=== PATIENT | male | born 1960 | race Hispanic/Latino ===

== ENCOUNTER 2023-05-16 21:52 | Observation (INO) | payer OTHER ==
[2023-05-16 23:10] LABS: Absolute Lymphocytes (CBC) 0.3 K/uL (0.7-4.9); Lymphocytes % 7.3 % (15.3-44.8); MCV 95.3 fL (80-100); MPV 9.7 fL (7.6-11.3); RBC Red Blood Cell Count 3.57 M/uL (4.33-5.43)
[2023-05-16 23:11] LABS: Protime INR 1.23
[2023-05-16 23:13] LABS: Albumin 3.6 g/dL (3.4-5.0); Bilirubin Direct 0.5 mg/dL (0-0.2); Bilirubin Indirect, Calculated 0.5 mg/dL (0.2-0.8); Magnesium 2.6 mg/dL (1.6-2.4); Potassium 4.4 mEq/L (3.5-5.1); Protein, Total 7.6 g/dL (6.4-8.2)
[2023-05-16 23:16] LABS: Troponin High Sensitivity 62.3 pg/mL (<58.9)
[2023-05-17] MEDS ORDERED: ONDANSETRON 4 MG/2 ML VIAL IV PRN (00:41)
[2023-05-17] MEDS ORDERED: ACETAMINOPHEN 500 MG TAB PO PRN (00:41)
[2023-05-17 00:47] LABS: Arterial Blood Carboxyhemoglob 3.5 % (0-1.5); Blood Gas Oxyhemoglobin 83.1 % (94-97); Blood O2 Saturation 87.4 % (92-98.5)
--- NOTE | 2023-05-17 00:48 | P.HP ---
Certification for Inpatient Patient admitted to: Observation With expected LOS: <2 Midnights Patient will require the following post-hospital care: None Practitioner: I am a practitioner with admitting privileges, knowledge of patient current condition, hospital course, and medical plan of care. Services: Services provided to patient in accordance with Admission requirements found in Title 42 Section 412.3 of the Code of Federal Regulations Patient History Date of Service: 05/17/23 Reason for admission: Fall History of Present Illness: 62 year old male with past medical history of ESRD on HD, IVÁN, HTN, HLD, presents to ER after a fall. HPI limited due to patient sleeping. left for the evening. Per / ER note, patient did not get to finish HD today. Patient is resenting with eyes closed, responds to verbal, but is not awake enough to answer questions. Per ER, patient has FVO, generalized edema, needs to complete HD. ROS limited due to patient sleeping. Plan to admit for Obs for HD in am. Per ER note, patient had a fall, CT of head was negative for acute findings. - Past Medical/Surgical History -: ESRD HD -: HTN -: IVÁN -: Restless leg syndrome -: limited due to patient sleeping, Psychosocial/ Personal History: , lives with spouse - Social History Smoking Status: Never smoker Alcohol use: No CD- Drugs: No Review of Systems is unable to be obtained Physical Examination - Physical Exam General: Other (resting with eye closed, responds to verbal, asleep) HEENT: Atraumatic, Normocephalic, Mucous membr. moist/pink Neck: Supple, 2+ carotid pulse no bruit, JVD not distended Respiratory: Crackles/rales Cardiovascular: Normal S1 S2, Edema Capillary refill: <2 Seconds Gastrointestinal: Normal bowel sounds, Soft and benign Musculoskeletal: Other (eccymosis to left eye with mild edema) Integumentary: Other (+2-3 edema BLE) Neurological: Other (asleep, eyes open to verbal, ) - Studies Laboratory Data (last 24 hrs) 05/16/23 22:40: PT 13.5 H, INR 1.23 05/16/23 22:40: WBC 4.50, Hgb 10.9 L, Hct 34.0 L, Plt Count 109 L 05/16/23 22:40: Sodium 133 L, Potassium 4.4, BUN 48 H, Creatinine 8.35 H, Glucose 84, Magnesium 2.6 H, Total Bilirubin 1.0, AST 16, ALT 16, Alkaline Phosphatase 151 H Assessment and Plan - Plan Assessment plan ESRD HD FVO fall HTN Restless leg IVÁN DVT Assessment plan ESRD HD FVO neph consult HD in am trend elec Replace prn, daily wt, IO fall fall precautions PT eval in am HTN Restless leg IVÁN Bipap at hs resume approp home meds DVT heparin Renal diet Full code Discharge Plan: Home Plan to discharge in: 24 Hours - Advance Directives Does patient have a Living Will: No Does patient have a Durable POA for Healthcare: No - Code Status/Comfort Care Code Status: Full Code Physician Review: Patient Assessed, Agree with Above Assessment and Plan Critical Care: Yes Time Spent Managing Pts Care (In Minutes): 50
--- NOTE | 2023-05-17 01:28 | EDPHYS ---
Physician Documentation [facility] Name: Gustavo Livingston Age: 62 yrs Sex: Male : 1960 Arrival Date: 05/16/2023 Time: 21:52 Bed 8 Private MD: ED Physician Delbert Yanez HPI: 05/16 22:01 This 62 yrs old Male presents to ER via Unassigned with complaints of Dialysis sp4 pt, Fall Injury, Head Injury-Adult. 05/17 00:19 Very pleasant 60-year-old male presents with acute onset generalized weakness and sp4 confusion associated with incomplete dialysis this morning. Patient is from dialysis for fourth. He is here on vacation, he was dialyzed a [facility] hours [facility] this morning. Patient experienced significant restless legs and body spasms and could not be dialyzed any further. Patient was taken off dialysis he went attempted to go to the beach but developed worsening confusion generalized weakness and was brought here by his spouse. Patient is able to assist onto the bed has significant bilateral lower extremity tense swelling and also reports that he fell at home sustaining left-sided facial contusion also right hip pain after the fall. . Historical: - Allergies: 05/16 22:39 Morphine; pf1 - PMHx: 22:39 CKD; dialysis; cardiomegaly; autoimmune disorder; IGA; hyperkalemia; pf1 - PSHx: 22:39 peritoneal catheter removed; tumor removed from spine; dialysis catheter to right pf1 anterior chest wall; old dialysis fistula to left arm; - Immunization history:: Adult Immunizations up to date, Last tetanus immunization: < 5 years ago Pneumococcal vaccine is up to date, Flu vaccine is up to date. - Social history:: Smoking status: Patient reports the use of cigarette tobacco products, smokes one pack cigarettes per day. Patient/guardian denies using alcohol, street drugs. - Family history:: not pertinent. ROS: 05/17 00:19 Constitutional: Negative for fever, chills, and weight loss, positive generalized sp4 weakness and confusion, positive fall at home positive for left facial injury Eyes: Negative for injury, pain, redness, and discharge, positive left periorbital contusion and left periorbital injury ENT: Negative for injury, pain, and discharge, Neck: Negative for injury, pain, and swelling, Cardiovascular: Negative for chest pain, palpitations, and edema, Respiratory: Negative for cough, wheezing, and pleuritic chest pain, Abdomen/GI: Negative for abdominal pain, nausea, vomiting, diarrhea, and constipation, Back: Negative for injury and pain, : Negative for injury, bleeding, discharge, and swelling, MS/Extremity: Positive for right hip pain right pelvic pain after a fall. Positive for bilateral lower extremity edema Skin: Negative for injury, rash, and discoloration, Neuro: Negative for headache, weakness, numbness, tingling, and seizure, positive for confusion Psych: Negative for depression, anxiety, Allergy/Immunology: Negative for hives, rash, and allergies Endocrine: Negative for neck swelling, polydipsia, polyuria, polyphagia, and weight changes Hematologic/Lymphatic: Negative for swollen nodes, abnormal bleeding, and unusual bruising Exam: 00:16 ECG was reviewed by the Attending Physician. EKG time 2251, there is sinus rhythm sp4 with a rate of 67, no ST elevation or depression, right bundle branch block, positive multifocal PVCs , no sign of acute ID 01:27 Constitutional: This is a well developed, well nourished patient who is awake, alert, sp4 patient is ill-appearing, generalized and bilateral lower extremity edema with pitting, also right chest wall dialysis permacath, left upper arm dialysis fistula that is reported to be nonfunctional, patient is overweight, he has pale in appearance, ill-appearing but nontoxic. Stable blood pressure on arrival Head/Face: Normocephalic, atraumatic. Eyes: Pupils equal round and reactive to light, extra-ocular motions intact. Lids and lashes normal. Conjunctiva and sclera are not injected. Cornea within normal limits. Periorbital areas with no swelling, redness, or edema. ENT: Nares patent. No nasal discharge, no septal abnormalities noted. Tympanic membranes are normal and external auditory canals are clear. Oropharynx with no redness, swelling, or masses, exudates, or evidence of obstruction, uvula midline. Mucous membranes moist. Neck: Trachea midline, no thyromegaly or masses palpated, and no cervical lymphadenopathy. Supple, full range of motion without nuchal rigidity, or vertebral point tenderness. Chest/axilla: Normal chest wall appearance and motion. Nontender with no deformity. No lesions are appreciated. Cardiovascular: Regular rate and rhythm with a normal S1 and S2. No gallops, murmurs, or rubs. Normal PMI, no JVD. No pulse deficits. Respiratory: Lungs have equal breath sounds bilaterally, clear to auscultation and percussion. No rales, rhonchi or wheezes noted. Diminished bilateral lower breath sounds Abdomen/GI: Soft, non-tender, with normal bowel sounds. No distension or tympany. No guarding or rebound. No evidence of tenderness throughout. Back: No spinal tenderness. No costovertebral tenderness. Skin: Warm, dry with normal turgor. Normal color with no rashes, no lesions, and no evidence of cellulitis. Bilateral lower extremity venous stasis skin changes MS/ Extremity: Pulses equal, no cyanosis. Neurovascular intact. Full, normal range of motion. Neuro: Awake and alert, GCS 15, oriented to person, place, Cranial nerves II-XII grossly intact. Motor strength 5/5 in all extremities. Sensory grossly intact. Peers to be mildly confused, generalized weakness with no localized neurologic deficit. Psych: Awake, alert, with orientation to person, and place. behavior, mood, and affect are within normal limits Vital Signs: 05/16 22:23 BP 141 / 80; Pulse 62; Resp 23; Temp 98(O); Pulse Ox 95% on R/A; Weight 101 kg; Height pf1 5 ft. 9 in. ; Pain 8/10; 23:01 BP 141 / 80; Pulse 82; Resp 18; Pulse Ox 95% ; rv 05/17 00:00 BP 169 / 91; Pulse 62; Resp 16; Pulse Ox 99% on 2 lpm NC; rv 01:00 BP 166 / 97; Pulse 63; Resp 16; Pulse Ox 99% on 2 lpm NC; rv 02:00 BP 170 / 98; Pulse 63; Resp 16; Temp 98; Pulse Ox 99% on 2 lpm NC; rv 05/16 22:23 Body Mass Index 32.88 (101.00 kg, 175.26 cm) pf1 05/16 22:23 Pain Scale: Adult pf1 Dilley Coma Score: 02:31 Eye Response: spontaneous(4). Motor Response: obeys commands(6). Verbal Response: rv oriented(5). Total: 15. MDM: 05/16 22:03 Patient medically screened. sp4 05/17 01:27 Differential diagnosis: abrasion, closed head injury, contusion, fracture, laceration, sp4 multiple trauma, sprain, strain. Data reviewed: vital signs, nurses notes, lab test result(s), EKG, radiologic studies, CT scan, plain films. Consideration of Admission/Observation Patient was admitted/placed on observation. Escalation of care including admission/observation considered. Management of patient was discussed with the following: Hospitalist: Discussed with admitting team. Plumber'S Assistant: Discussed with glaze supervisor Dr. Sweeney . ED course: Patient this time warrants admission for hemodialysis in the morning. Trauma work-up was negative.. ED course: TECHNIQUE: Single frontal view of the pelvis and for views of the right femur were obtained. FINDINGS: There is no fracture or dislocation. The joint spaces are preserved. Mild reticulation throughout the subcutaneous tissues may be seen with edema, venous stasis and cellulitis.. Degenerative change of the lumbar spine. Mild degenerative change of the bilateral hips. Vascular calcification present throughout the soft tissues. IMPRESSION: 1. No acute fracture or dislocation. 2. Mild reticulation throughout the subcutaneous tissues may be seen with edema, venous stasis and cellulitis.. ED course: CLINICAL HISTORY: The patient is 62 years old and is Male; DYSPNEA TECHNIQUE: Frontal view of the chest. COMPARISON: No relevant prior studies available. FINDINGS: Lungs: Prominent interstitial markings which may indicate interstitial edema. Pleural space: Left hemidiaphragm is somewhat obscured which can be seen with left pleural effusion, as well as left lower lobe consolidation or atelectasis. No pneumothorax. Heart: Unremarkable. Mediastinum: Unremarkable. Bones/joints: Unremarkable. Tubes, lines and devices: Right central venous catheter with tip in the right atrium. IMPRESSION: 1. Prominent interstitial markings which may indicate interstitial edema. 2. Left hemidiaphragm is somewhat obscured which can be seen with left pleural effusion, as well as left lower lobe consolidation or atelectasis. . ED course: CT head - COMPARISON: No relevant prior studies available. FINDINGS: Brain: Mild cerebral atrophy. Mild nonspecific white matter changes likely related to chronic microvascular ischemic disease. No hemorrhage. Ventricles: Unremarkable. No ventriculomegaly. Bones/joints: Unremarkable. No acute fracture. Soft tissues: Unremarkable. Sinuses: Unremarkable as visualized. Mastoid air cells: Partial opacification of the right mastoid air cells. IMPRESSION: No acute intracranial abnormality. . 01:38 ED course: Patient's condition is stable will admit as labs for hemodialysis in the sp4 morning.. . 02:47 ED course: Error of ordering -Remeron was ordered but not given secondary to no sp4 necessity in this patient . 05/16 22:12 Order name: Basic Metabolic Panel; Complete Time: 23:53 sp4 05/16 22:12 Order name: CBC with Diff; Complete Time: 23:53 sp4 05/16 22:12 Order name: LFT's; Complete Time: 23:53 sp4 05/16 22:12 Order name: Magnesium; Complete Time: 23:53 sp4 05/16 22:12 Order name: NT PRO-BNP; Complete Time: 23:53 sp4 05/16 22:12 Order name: PT-INR; Complete Time: 23:53 sp4 05/16 22:12 Order name: Troponin HS; Complete Time: 23:53 sp4 05/16 22:22 Order name: AMMONIA; Complete Time: 23:53 sp4 05/17 00:34 Order name: ABG; Complete Time: 02:47 pf1 05/17 00:39 Order name: Glucose, Ancillary Testing; Complete Time: 02:47 EDMS 05/17 00:43 Order name: NT PRO-BNP EDMS 05/17 00:43 Order name: Urinalysis w/ reflexes EDMS 05/17 00:44 Order name: Urinalysis w/ reflexes EDMS 05/17 00:44 Order name: Basic Metabolic Panel EDMS 05/17 00:44 Order name: Basic Metabolic Panel EDMS 05/17 00:44 Order name: Basic Metabolic Panel EDMS 05/17 00:44 Order name: CBC with Automated Diff EDMS 05/17 00:44 Order name: CBC with Automated Diff EDMS 05/17 00:44 Order name: CBC with Automated Diff EDMS 05/17 00:44 Order name: Magnesium EDMS 05/17 00:44 Order name: Magnesium EDMS 05/17 00:44 Order name: Magnesium EDMS 05/17 00:44 Order name: Troponin High Sensitivity EDMS 05/17 00:44 Order name: Troponin High Sensitivity EDMS 05/17 00:44 Order name: Troponin High Sensitivity EDMS 05/17 00:44 Order name: Troponin High Sensitivity EDMS 05/17 00:44 Order name: Troponin High Sensitivity EDMS 05/16 22:12 Order name: XRAY Chest (1 view) [facility] 05/16 22:22 Order name: Pelvis XRAY [facility] 05/16 22:22 Order name: Femur Right XRAY [facility] 05/16 22:22 Order name: CT Head Brain wo Cont [facility] 05/16 22:12 Order name: EKG; Complete Time: 22:13 [facility] 05/17 00:32 Order name: CONS Physician Consult [facility] 05/17 00:43 Order name: Renal [facility] 05/16 22:12 Order name: Cardiac monitoring; Complete Time: 23:00 [facility] 05/16 22:12 Order name: EKG - Nurse/Tech; Complete Time: 23:00 [facility] 05/16 22:12 Order name: IV Saline Lock; Complete Time: 23:00 [facility] 05/16 22:12 Order name: Labs collected and sent; Complete Time: 23:00 [facility] 05/16 22:12 Order name: O2 Per Protocol; Complete Time: 23:00 [facility] 05/16 22:12 Order name: O2 Sat Monitoring; Complete Time: 23:01 [facility] EC:16 Rate is 67 beats/min. Rhythm is regular, Sinus Rhythm. QRS [place] is Normal. QRS interval sp4 is prolonged. T waves are Inverted in leads V1, V2, V3. No ST changes noted. Interpreted by me. Administered Medications: 05/16 23:09 Not Given (PT IS ASLEEPp): Remeron PO 15 mg PO once rv Disposition Summary: 05/17/23 01:27 Hospitalization Ordered Hospitalization Status: Inpatient Admission sp4 Provider: Jillian Kahn Location: Telemetry/MedSur (observation) sp4 Condition: Stable sp4 Problem: new sp4 Symptoms: are unchanged sp4 Bed/Room Type: Standard 4 Room Assignment: 411(05/17/23 02:13) eb1 Diagnosis - End-stage renal disease, volume overload, acute generalized weakness, fall at home, sp4 left facial contusion, right hip sprain, end-stage renal disease on dialysis, cardiomegaly, Forms: - Medication Reconciliation Form sp4 - SBAR form sp4 Signatures: Dispatcher [employer] EDGA Khalida Abbott RN RN eb1 Polly Deluca RN RN pf1 Delbert Yanez MD MD sp4 Nithin Chahal RN rv Corrections: (The following items were deleted from the chart) 05/17 01:32 00:19 Constitutional: Negative for fever, chills, and weight loss, positive generalized sp4 weakness and confusion, positive fall at home positive for left facial injury Eyes: Negative for injury, pain, redness, and discharge, positive left periorbital contusion and left periorbital injury ENT: Negative for injury, pain, and discharge, Neck: Negative for injury, pain, and swelling, Cardiovascular: Negative for chest pain, palpitations, and edema, Respiratory: Negative for cough, wheezing, and pleuritic chest pain, sp4 01:33 00:19 Constitutional: Negative for fever, chills, and weight loss, positive generalized sp4 weakness and confusion, positive fall at home positive for left facial injury Eyes: Negative for injury, pain, redness, and discharge, positive left periorbital contusion and left periorbital injury ENT: Negative for injury, pain, and discharge, Neck: Negative for injury, pain, and swelling, Cardiovascular: Negative for chest pain, palpitations, and edema, Respiratory: Negative for cough, wheezing, and pleuritic chest pain, Abdomen/GI: Negative for abdominal pain, nausea, vomiting, diarrhea, and constipation, Back: Negative for injury and pain, : Negative for injury, bleeding, discharge, and swelling, MS/Extremity: Positive for right hip pain right pelvic pain after a fall. Skin: Negative for injury, rash, and discoloration, Neuro: Negative for headache, weakness, numbness, tingling, and seizure, positive for confusion Psych: Negative for depression, anxiety, Allergy/Immunology: Negative for hives, rash, and allergies Endocrine: Negative for neck swelling, polydipsia, polyuria, polyphagia, and weight changes Hematologic/Lymphatic: Negative for swollen nodes, abnormal bleeding, and unusual bruising sp4 02:13 01:27 sp4 eb1
--- NOTE | 2023-05-17 01:28 | ER ---
Nurse's Notes [facility] Name: Gustavo Livingston Age: 62 yrs Sex: Male : 1960 Arrival Date: 05/16/2023 Time: 21:52 Bed 8 Private MD: Diagnosis: End-stage renal disease, volume overload, acute generalized weakness, fall at home, left facial contusion, right hip sprain, end-stage renal disease on dialysis, cardiomegaly, Presentation: 05/16 22:23 Chief complaint: Spouse and/or significant other states: patient fell today at 1000 pf1 while at dialysis, head injury with contusion to left eye. Patient C/O generalized pain with worse pain to right hip. stated patient only completed 1.5 hours dialysis due to severe muscle spasms,performed today at [facility] in [facility] at 1000 this AM. stated patient frequency falls with intermittent confusion and only sleeps approximately 2 hours a night. Coronavirus screen: Vaccine status: Patient reports receiving the 2nd dose of the covid vaccine. 3 doses of Pfizer Client denies travel out of the [place] in the last 14 days. At this time, the client does not indicate any symptoms associated with coronavirus-19. Ebola Screen: Patient negative for fever greater than or equal to 101.5 degrees Fahrenheit, and additional compatible Ebola Virus Disease symptoms. Initial Sepsis Screen: Does the patient meet any 2 criteria? HR > 90 bpm. Does the patient have a suspected source of infection? No. Patient's initial sepsis screen is negative. Risk Assessment: Do you want to hurt yourself or someone else? Patient reports no desire to harm self or others. 22:23 Method Of Arrival: Wheelchair pf1 22:23 Acuity: ROSCOE 3 pf1 23:03 Onset of symptoms is unknown. rv Triage Assessment: 23:02 General: Appears ill, Behavior is drowsy. Pain: Denies pain. 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 - Social history:: Smoking status: Patient reports the use of cigarette tobacco products, smokes one pack cigarettes per day. Patient/guardian denies using alcohol, street drugs. - Family history:: not pertinent. Screenin:02 [facility] ED Fall Risk Assessment (Adult) History of falling in the last 3 months, rv including since admission Yes- fall prone (multiple falls) (3 pts) Confusion or Disorientation Yes (5 pts) Intoxicated or Sedated No (0 pts) Impaired Gait Yes (1 pt) Mobility Assist Device Used Yes (1 pt) Altered Elimination Yes (1 pt) Score/Fall Risk Level 3 or more points = High Risk Oriented to surroundings, Maintained a safe environment, Educated pt \T\ family on fall prevention, incl call for assistance when getting out of bed, Assessed \T\ reinforced patient's understanding of fall precautions, Provided non-skid footwear, Hourly rounding (assess needs \T\ fall precautionary measures) done, Used ambulatory aids as needed (educated on \T\ assisted with), Used gait belt as appropriate Implemented a Fall Risk Plan of Care, Apply high fall risk patient identification: yellow non skid footwear/ fall signage, Placed fall mat w/ non beveled edge next to bed, Activated bed/chair alarm, Remained w/in arm's length of patient and in sight while toileting, Offered frequent toileting (1:1 observation), Remained with patient while ambulating, Utilized family, sitter, or virtual finance consultant as indicated. Abuse screen: Denies threats or abuse. Denies injuries from another. Nutritional screening: No deficits noted. Tuberculosis screening: No symptoms or risk factors identified. Assessment: 05/17 00:30 Neuro: Level of Consciousness is lethargic. rv Vital Signs: 05/16 22:23 BP 141 / 80; Pulse 62; Resp 23; Temp 98(O); Pulse Ox 95% on R/A; Weight 101 kg; Height pf1 5 ft. 9 in. ; Pain 8/10; 23:01 BP 141 / 80; Pulse 82; Resp 18; Pulse Ox 95% ; rv 05/17 00:00 BP 169 / 91; Pulse 62; Resp 16; Pulse Ox 99% on 2 lpm NC; rv 01:00 BP 166 / 97; Pulse 63; Resp 16; Pulse Ox 99% on 2 lpm NC; rv 02:00 BP 170 / 98; Pulse 63; Resp 16; Temp 98; Pulse Ox 99% on 2 lpm NC; rv 05/16 22:23 Body Mass Index 32.88 (101.00 kg, 175.26 cm) pf1 05/16 22:23 Pain Scale: Adult pf1 Giovanni Coma Score: 02:31 Eye Response: spontaneous(4). Motor Response: obeys commands(6). Verbal Response: rv oriented(5). Total: 15. ED Course: 05/16 21:54 Patient arrived in ED. mr 22:01 Delbert Yanez MD is Attending Physician. sp4 22:36 Nithin Chahal RN is Primary Nurse. rv 22:38 Triage completed. pf1 22:43 XRAY Chest (1 view) In Process Unspecified. EDMS 22:43 Pelvis XRAY In Process Unspecified. EDMS 22:43 Femur Right XRAY In Process Unspecified. EDMS 22:45 Inserted saline lock: 20 gauge in right antecubital area, using aseptic technique. rv Blood collected. 23:02 Patient has correct armband on for positive identification. Placed in gown. Bed in low rv position. Call light in reach. Side rails up X2. Adult w/ patient. Client placed on continuous cardiac and pulse oximetry monitoring. NIBP monitoring applied. monitoring manager on. 23:02 Arm band placed on right wrist. rv 23:23 CT Head Brain wo Cont In Process Unspecified. EDMS 05/17 01:25 Zen Mike is Hospitalizing Provider. sp4 01:25 Jillian Kahn MD is Hospitalizing Provider. sp4 02:28 No provider procedures requiring assistance completed. Patient admitted, IV remains in rv place. 02:29 Provided Education on: ADMIT. rv Administered Medications: 05/16 23:09 Not Given (PT IS ASLEEPp): Remeron PO 15 mg PO once rv Medication: 23:03 VIS not applicable for this client. rv Outcome: 05/17 01:27 Decision to Hospitalize by Provider. sp4 02:28 Admitted to Tele accompanied by tech, via stretcher, room 411, with chart, Report rv called to JOE RN 02:28 Condition: good 02:28 Instructed on the need for admit. 02:31 Patient left the ED. rv Signatures: Dispatcher [employer] MILAGROS FelixKylie claire Ronaldo, RN RN Polly Palma RN RN pf1 Delbert Yanez MD MD sp4
[2023-05-17 04:32] VITALS: BMI 33.5
[2023-05-17] MEDS: HEPARIN 5000 UNIT/ML 1 ML VIAL SQ SCH ×3 (05:14→21:57)
[2023-05-17] MEDS: INSULIN -REGULAR HUMAN 50 UNIT/0.5 ML ML SQ SCH ×4 (07:30→21:00)
[2023-05-17 09:27] LABS: Absolute Lymphocytes (CBC) 0.4 K/uL (0.7-4.9); Hematocrit 33.6 % (39.6-49.0); Lymphocytes % 7.9 % (15.3-44.8); MCV 95.5 fL (80-100); MPV 9.8 fL (7.6-11.3); RBC Red Blood Cell Count 3.52 M/uL (4.33-5.43)
[2023-05-17 09:32] LABS: Magnesium 2.6 mg/dL (1.6-2.4); Potassium 4.7 mEq/L (3.5-5.1); Troponin High Sensitivity 47.7 pg/mL (<58.9)
--- NOTE | 2023-05-17 11:16 | RAD REPORT ---
EXAM DESCRIPTION: RAD - Chest Single View - 05/16/2023 10:41 pm CLINICAL HISTORY: The patient is 62 years old and is Male; DYSPNEA TECHNIQUE: Frontal view of the chest. COMPARISON: No relevant prior studies available. FINDINGS: Lungs: Prominent interstitial markings which may indicate interstitial edema. Pleural space: Left hemidiaphragm is somewhat obscured which can be seen with left pleural effusi on, as well as left lower lobe consolidation or atelectasis. No pneumothorax. Heart: Unremarkable. Mediastinum: Unremarkable. Bones/joints: Unremarkable. Tubes, lines and devices: Right central venous catheter with tip in the right atrium. IMPRESSION: 1. Prominent interstitial markings which may indicate interstitial edema. 2. Left hemidiaphragm is somewhat obscured which can be seen with left pleural effusion, as well as left lower lobe consolidation or atelectasis. Electronically signed by: Edward Langley MD 05/17/2023 12:01 AM CDT Due to temporary technical issues with the PACS/Fluency reporting system, reports are being signed by the in house radiologist without review as a courtesy to ensure prompt reporting. The interpreting r adiologist is fully responsible for the content of the report.
[2023-05-17] MEDS: SEVELAMER CARBONATE 800 MG TABLET PO SCH ×3 (12:05→21:56)
--- NOTE | 2023-05-17 12:59 | RAD REPORT ---
EXAM DESCRIPTION: RAD - Pelvis - 05/16/2023 10:41 pm CLINICAL HISTORY: 62-year-old male with left hip pain. COMPARISON: None. TECHNIQUE: Single frontal view of the pelvis and for views of the right femur were obtained. FINDINGS: There is no fracture or dislocation. The joint spaces are preserved. Mild reticulation thr oughout the subcutaneous tissues may be seen with edema, venous stasis and cellulitis.. Degenerative change of the lumbar spine. Mild degenerative change of the bilateral hips. Vascular calcification pr esent throughout the soft tissues. IMPRESSION: 1. No acute fracture or dislocation. 2. Mild reticulation throughout the subcutaneous tissues may be seen with edema, venous stasis and cellulitis. Electronically signed by: Ivy Gonzalez MD 05/17/2023 12:34 AM CDT Due to temporary technical issues with the PACS/Fluency reporting system, reports are being signed by the in house radiologist without review as a courtesy to ensure prompt reporting. The interpreting r adiologist is fully responsible for the content of the report.
--- NOTE | 2023-05-17 13:06 | RAD REPORT ---
EXAM DESCRIPTION: RAD - Femur Right - 05/16/2023 10:41 pm CLINICAL HISTORY: 62-year-old male with left hip pain. COMPARISON: None. TECHNIQUE: Single frontal view of the pelvis and for views of the right femur were obtained. FINDINGS: There is no fracture or dislocation. The joint spaces are preserved. Mild reticulation thr oughout the subcutaneous tissues may be seen with edema, venous stasis and cellulitis.. Degenerative change of the lumbar spine. Mild degenerative change of the bilateral hips. Vascular calcification pr esent throughout the soft tissues. IMPRESSION: 1. No acute fracture or dislocation. 2. Mild reticulation throughout the subcutaneous tissues may be seen with edema, venous stasis and cellulitis. Electronically signed by: Ivy Gonzalez MD 05/17/2023 12:34 AM CDT Due to temporary technical issues with the PACS/Fluency reporting system, reports are being signed by the in house radiologist without review as a courtesy to ensure prompt reporting. The interpreting r adiologist is fully responsible for the content of the report.
--- NOTE | 2023-05-17 13:10 | RAD REPORT ---
EXAM DESCRIPTION: CT - Head Brain Wo Cont - 05/17/2023 7:18 am CLINICAL HISTORY: The patient is 62 years old and is Male; CONFUSED TECHNIQUE: Axial computed tomography images of the head/brain without intravenous contrast. Sagitt al and coronal reformatted images were created and reviewed. This CT exam was performed using one o r more of the following dose reduction techniques: automated exposure control, adjustment of the mA and/or kV according to patient size, and/or use of iterative reconstruction technique. COMPARISON: No relevant prior studies available. FINDINGS: Brain: Mild cerebral atrophy. Mild nonspecific white matter changes likely related to chronic microvascular ischemic diseas e. No hemorrhage. Ventricles: Unremarkable. No ventriculomegaly. Bones/joints: Unremarkable. No acute fracture. Soft tissues: Unremarkable. Sinuses: Unremarkable as visualized. Mastoid air cells: Partial opacification of the right mastoid air cells. IMPRESSION: No acute intracranial abnormality. Electronically signed by: Edward Langley MD 05/17/2023 12:01 AM CDT Due to temporary technical issues with the PACS/Fluency reporting system, reports are being signed by the in house radiologist without review as a courtesy to ensure prompt reporting. The interpreting r adiologist is fully responsible for the content of the report.
[2023-05-17] MEDS: ALPRAZOLAM 0.25 MG TABLET PO PRN (13:18)
[2023-05-17] MEDS: GABAPENTIN 300 MG CAP PO SCH ×2 (14:22→21:56)
[2023-05-17] MEDS: ROPINIROLE HCL 1 MG TAB PO SCH ×2 (14:22→21:56)
[2023-05-17 15:04] LABS: Hepatitis B Surface Ab - Quant < 3.10 mIU/mL (<8.0); Hepatitis B surface AG Interp. Nonreactive (Nonreactive)
--- NOTE | 2023-05-17 15:43 | P.PN ---
Subjective Date of Service: 05/17/23 Chief Complaint: Fall Physical Examination - Vital Signs Temperature: 97.3 F Blood Pressure: 130/76 Pulse: 56 Respirations: 15 Pulse Ox (%): 96 - Studies Laboratory Data (last 24 hrs) 05/16/23 22:40: PT 13.5 H, INR 1.23 05/16/23 22:40: WBC 4.50, Hgb 10.9 L, Hct 34.0 L, Plt Count 109 L 05/16/23 22:40: Sodium 133 L, Potassium 4.4, BUN 48 H, Creatinine 8.35 H, Glucose 84, Magnesium 2.6 H, Total Bilirubin 1.0, AST 16, ALT 16, Alkaline Phosphatase 151 H Assessment And Plan Physician Review: Patient Assessed, Agree with Above Assessment and Plan
--- NOTE | 2023-05-17 15:59 | P.CNS ---
Date of Consult: 05/17/23 Reason for Consult: ESRD Requesting Physician: Jillian Kahn Chief Complaint: Fall History of Present Illness: 62M w/ PMHx of ESRD on HD, IVÁN, HTN, HLD, anemia, and renal osteodystrophy, who p/w a mechanical fall. Head CT negative. He received HD today. Vital signs stable. Allergies Unable to Assess Allergy (Unverified 05/17/23 04:37) Home Medications: Alprazolam [Xanax] 0.25 mg PO DAILY PRN 05/17/23 Amlodipine [Norvasc*] 10 mg PO BEDTIME 05/17/23 Calcitriol [Rocaltrol] 0.025 mcg PO DAILY 05/17/23 Calcium Carbonate/Vitamin D3 [Oscal 500 + Vit D 200 Iu Tab*] 1 tab PO DAILY 05/17/23 Clopidogrel Bisulfate [Plavix] 75 mg PO DAILY 05/17/23 Cyclobenzaprine [Flexeril*] 10 mg PO BID 05/17/23 Furosemide 80 mg PO BEDTIME 05/17/23 Furosemide 160 mg PO AC 05/17/23 Gabapentin 300 mg PO TID 05/17/23 Hydrocodone 10/APAP 325 [[place] 10/325*] 1 tab PO BID 05/17/23 Pantoprazole Sodium [Protonix] 40 mg PO DAILY 05/17/23 Ropinirole HCl 1 mg PO TID 05/17/23 Rosuvastatin Calcium 40 mg PO DAILY 05/17/23 Sertraline [Zoloft*] 25 mg PO DAILY 05/17/23 Sevelamer Carbonate 1,600 mg PO ACHS 05/17/23 - Past Medical/Surgical History Diabetic: Yes -: ESRD HD -: HTN -: IVÁN -: Restless leg syndrome -: limited due to patient sleeping, Psychosocial/ Personal History: , lives with spouse - Social History Smoking Status: Current every day smoker Alcohol use: No CD- Drugs: No Caffeine use: No Place of Residence: Home Review of Systems General: Weakness Eyes: Unremarkable ENT: Unremarkable Respiratory: Unremarkable Cardiovascular: Unremarkable Gastrointestinal: Unremarkable Genitourinary: Unremarkable Musculoskeletal: Unremarkable Integumentary: Unremarkable Neurological: Unremarkable Lymphatics: Unremarkable Physical Examination Temp Pulse Resp BP Pulse Ox 97.3 F 56 15 130/76 96 05/17/23 12:00 05/17/23 12:00 05/17/23 12:00 05/17/23 12:00 05/17/23 12:00 General: Other (chronically ill-appearing) HEENT: Atraumatic, Normocephalic Neck: Supple Respiratory: Other (symmetric chest expansion) Cardiovascular: No rubs, No murmurs Gastrointestinal: Soft and benign, No guarding Musculoskeletal: No clubbing Integumentary: No warmth Neurological: Normal tone Urinary: Other (no bladder distention) External genitalia: Deferred Rectal: Deferred Laboratory Data (last 24 hrs) 05/16/23 22:40: PT 13.5 H, INR 1.23 05/16/23 22:40: WBC 4.50, Hgb 10.9 L, Hct 34.0 L, Plt Count 109 L 05/16/23 22:40: Sodium 133 L, Potassium 4.4, BUN 48 H, Creatinine 8.35 H, Glucose 84, Magnesium 2.6 H, Total Bilirubin 1.0, AST 16, ALT 16, Alkaline Phosphatase 151 H Conclusions/Impression: # ESRD on HD HD received today HD MWF sked while in house # Mechanical fall Head CT neg Per other services PT/OT # Htn Cont current medication regimen HTS above # Anemia Monitor CBC # Renal osteodystrophy Monitor serum calcium and phosphorus Continue sevelamer # IVÁN cpap/bipap nightly
--- NOTE | 2023-05-17 19:16 | EKG ---
Test Date: 2023-05-16 Test Time: 22:51:01 [employer] Supervisor: CHRISTI MEASUREMENT RESULTS: Intervals: Rate: 67 TX: 190 QRSD: 152 QT: 492 QTc: 519 [place]: P: 71 TX: 190 QRS: -65 T: 49 INTERPRETIVE STATEMENTS: Sinus rhythm with sinus arrhythmia with occasional premature ventricular complexes Right bundle branch block Left anterior fascicular block Bifascicular block Septal infarct, age undetermined Abnormal ECG No previous ECG available for comparison Electronically Signed On 05-17-23 19:15:52 CDT by Russell Garcia
[2023-05-17] MEDS ORDERED: FUROSEMIDE 40 MG TABLET PO SCH (21:00)
[2023-05-17] MEDS ORDERED: AMLODIPINE 10 MG TAB PO SCH (21:00)
[2023-05-17] MEDS: CYCLOBENZAPRINE 10 MG TAB PO SCH (21:56)
[2023-05-17] MEDS: HYDROCODONE/APAP 10/325 TAB PO SCH (21:56)
[2023-05-18] MEDS: ALPRAZOLAM 0.25 MG TABLET PO PRN (02:07)
[2023-05-18 05:47] LABS: Absolute Lymphocytes (CBC) 0.4 K/uL (0.7-4.9); Hematocrit 32.8 % (39.6-49.0); Lymphocytes % 9.1 % (15.3-44.8); MCV 95.5 fL (80-100); MPV 9.7 fL (7.6-11.3); RBC Red Blood Cell Count 3.44 M/uL (4.33-5.43)
[2023-05-18] MEDS: HEPARIN 5000 UNIT/ML 1 ML VIAL SQ SCH (06:12)
[2023-05-18 06:14] LABS: Magnesium 2.5 mg/dL (1.6-2.4); Phosphorus 7.2 mg/dL (2.5-4.9); Potassium 4.5 mEq/L (3.5-5.1); Troponin High Sensitivity 42.4 pg/mL (<58.9)
[2023-05-18] MEDS ORDERED: FUROSEMIDE 40 MG TABLET PO SCH (07:30)
[2023-05-18] MEDS: INSULIN -REGULAR HUMAN 50 UNIT/0.5 ML ML SQ SCH (07:30)
[2023-05-18 08:31] VITALS: O2SAT 99
[2023-05-18] MEDS ORDERED: D10W 250 ML IV ONE (08:59)
[2023-05-18] MEDS ORDERED: SERTRALINE HCL 50 MG TAB PO SCH (09:00)
[2023-05-18] MEDS ORDERED: CALCITROL 0.25 MCG CAP PO SCH (09:00)
[2023-05-18] MEDS: HYDROCODONE/APAP 10/325 TAB PO SCH (09:00)
[2023-05-18] MEDS ORDERED: CALCIUM CARB 500MG/VIT D 200 IU TAB PO SCH (09:00)
[2023-05-18] MEDS ORDERED: PANTOPRAZOLE 40MG TABLET PO SCH (09:00)
[2023-05-18] MEDS ORDERED: ROSUVASTATIN 10 MG TAB PO SCH (09:00)
[2023-05-18] MEDS ORDERED: CLOPIDOGREL 75 MG TABLET PO SCH (09:00)
[2023-05-18 09:13] VITALS: BP 163/67; TEMP 97.9
--- NOTE | 2023-05-18 09:17 | P.PN ---
Date of Service: 05/18/23
[2023-05-18] MEDS: CYCLOBENZAPRINE 10 MG TAB PO SCH (10:00)
[2023-05-18] MEDS: ROPINIROLE HCL 1 MG TAB PO SCH (10:00)
[2023-05-18] MEDS: GABAPENTIN 300 MG CAP PO SCH (10:01)
[2023-05-18] MEDS: SEVELAMER CARBONATE 800 MG TABLET PO SCH (10:01)
--- NOTE | 2023-05-19 02:00 | PN ---
Date of Progress Note: 05/18/2023 Chief Complaint: End-stage renal disease, status post fall. Subjective: The patient presented to the hospital after he sustained fall. He is a 62-year-old man with history of end-stage renal disease, on hemodialysis. He received dialysis yesterday. He has hi story of obstructive sleep apnea, hypertension, renal osteodystrophy, chronic anemia, and history of mechanical fall. He had CT scan of the head done and it was negative for hematoma. Review of Systems: Denies complaints. Physical Examination: Lungs: Clear to auscultation bilaterally. Heart: S1-S2. Abdomen: Soft. Extremities: No edema. Impression And Plan: 1.End-stage renal disease. Next dialysis tomorrow. Monitor electrolytes. 2.Mechanical fall. PT, OT per primary team. 3.Hypertension. Continue blood pressure medication. 4.Anemia and chronic kidney disease. Monitor CBC. 5.Renal osteodystrophy. Monitor serum calcium and phosphorus. Continue Sevelamer. MARGARETTE/WAYNE Voice ID: [id number] Report ID: [id number]
== END 2023-05-18 12:09 | disposition home or self-care (01) ==
LOC: ER 21:52 → ERHOLD 05-17 00:27 → 4TH 05-17 04:58
PROVIDERS: ADMIT Hospitalist; ATTEND Hospitalist
DX: N18.6 End stage renal disease (principal); G47.33 Obstructive sleep apnea (adult) (pediatric); D63.1 Anemia in chronic kidney disease; I82.409 Acute embolism and thrombosis of unspecified deep veins of unspecified lower extremity; I12.0 Hypertensive chronic kidney disease with stage 5 chronic kidney disease or end stage renal disease; N25.0 Renal osteodystrophy; E78.5 Hyperlipidemia, unspecified; G25.81 Restless legs syndrome; S73.101A Unspecified sprain of right hip, initial encounter; S00.83XA Contusion of other part of head, initial encounter; W18.39XA Other fall on same level, initial encounter; Y93.9 Activity, unspecified; Y92.019 Unspecified place in single-family (private) house as the place of occurrence of the external cause; Z99.2 Dependence on renal dialysis; Z91.158 Patient's noncompliance with renal dialysis for other reason; Z88.6 Allergy status to analgesic agent
CPT/HCPCS: 36415; 70450; 71045; 72170; 80048; 80076; 82140; 82805; 82947; 83735; 83880; 84100; 84484; 85025; 85610; 86706; 87340; 90935; 93005; 94660; 94760; 99285; J1644